=== PATIENT | male | born 1985 | race Caucasian/White ===

== ENCOUNTER 2019-06-24 13:33 | Emergency (ER) | payer OTHER ==
[~2019-06-24] VITALS: Ht 172.7 cm; Wt 133.8 kg
[2019-06-24 13:40] VITALS: Ht 172.7 cm; Wt 133.8 kg
[2019-06-24 14:39] LABS: BASOPHIL % 0.4 % (0-2); PLATELET COUNT 176 x10^3mcL (130-400); RED CELL DISTRIBUTION WIDTH 12.6 % (11.5-14.5)
[2019-06-24 14:41] LABS: CALCIUM 9.1 mg/dL (8.5-10.1); CARBON DIOXIDE 33.5 mmol/L (21-32); CHLORIDE SERUM 97 mmol/L (98-107); CREATININE SERUM 0.9 mg/dL (0.7-1.3); GFR1 > 60 mL/min; GLUCOSE SERUM 318 mg/dL (74-106); POTASSIUM SERUM 4.2 mmol/L (3.5-5.1); SODIUM SERUM 137 mmol/L (136-145)
[2019-06-24 14:46] LABS: ALBUMIN 3.8 g/dL (3.4-5.0); ALKALINE PHOSPHATASE 103 U/L (46-116); ALT/SGPT 109 U/L (16-63); AST/SGOT 70 U/L (15-37); BILIRUBIN TOTAL 0.5 mg/dL (0.20-1.00); HDL CHOLESTEROL 39 mg/dL (40-60); TOTAL PROTEIN, SERUM 8.2 g/dL (6.4-8.2)
[2019-06-24 15:10] LABS: microscopic required? NO
[2019-06-24 15:47] LABS: UA SPECIFIC GRAVITY <=1.005 (1.005-1.035); urine erythrocyte NEGATIVE (NEGATIVE)
[2019-06-24 16:43] VITALS: BP 118/79
== END 2019-06-24 16:43 | disposition home or self-care (01) ==
LOC: ED 13:33
PROVIDERS: Emergency Medicine
DX: E11.9 Type 2 diabetes mellitus without complications (principal); F17.210 Nicotine dependence, cigarettes, uncomplicated
CPT/HCPCS: 82962; 99406; J7030